=== PATIENT | female | born 1975 | race Caucasian/White ===

== ENCOUNTER 2022-07-13 13:20 | Outpatient (CLI) | payer OTHER, SELFPAY ==
--- NOTE | 2022-07-13 13:40 | CRLHL7_ITS ---
For Patients: As a result of the Century Cures Act, medical imaging exams and procedure reports are released immediately into your electronic medical record. You may view this report before your referring provider. If you have questions, please contact your health care provider. BILATERAL SCREENING MAMMOGRAM WITH COMPUTER-AIDED DETECTION AND TOMOSYNTHESIS TECHNIQUE: CC, MLO and Implant displaced views were obtained. These mammographic images have been obtained using full-field digital technique. These mammographic images were interpreted with the benefit of computer-aided detection. Breast Tomosynthesis was used in this interpretation. COMPARISON FILM: 07/01/21, 04/23/20, 05/26/18. FINDINGS: The breasts are extremely dense, which lowers the sensitivity of mammography IMPRESSION: There is no radiographic evidence for malignancy. ASSESSMENT: BI-RADS Category 2: Benign RECOMMENDATION: Routine screening mammogram in 1 year. A lay language report of this examination will be provided to the patient. Felice Valentine M.D. Diagnostic Radiologist [email or web address] FRITZ/Dictated by: Felice Valentine MD @ 07/14/2022 9:10:00 AM (Electronically Signed)
== END 2022-07-13 13:21 | disposition home or self-care (01) ==
PROVIDERS: PCP Family Medicine; Visit Provider Family Medicine
DX: Z12.31 Encounter for screening mammogram for malignant neoplasm of breast (principal); R92.2 Inconclusive mammogram
CPT/HCPCS: 77063; 77067

== ENCOUNTER 2023-08-25 08:46 | Outpatient (CLI) | payer BC, SELFPAY | END 2023-08-25 08:47 | disposition home or self-care (01) | PROVIDERS: PCP Emergency Medicine; Visit Provider Emergency Medicine | DX: Z00.00 Encounter for general adult medical examination without abnormal findings (principal); Z13.6 Encounter for screening for cardiovascular disorders; Z13.1 Encounter for screening for diabetes mellitus | CPT/HCPCS: 80061; 82947 ==

== ENCOUNTER 2024-05-11 12:55 | Outpatient (CLI) | payer BC, SELFPAY ==
--- NOTE | 2024-05-11 14:43 | W.ANESCHARGE ---
Anesthesia Charges Start Date/Time Anesthesia Start Date: 05/11/24 Anesthesia Start Time: 13:54 Stop Date/Time Anesthesia Stop Date: 05/11/24 Anesthesia Stop Time: 14:41
--- NOTE | 2024-05-11 14:56 | W.ANESCHARGE ---
Anesthesia Charges Start Date/Time Anesthesia Start Date: 05/11/24 Anesthesia Start Time: 13:54 Stop Date/Time Anesthesia Stop Date: 05/11/24 Anesthesia Stop Time: 14:41
== END 2024-05-11 12:56 | disposition home or self-care (01) ==
LOC: OP CLINIC 12:56
PROVIDERS: PCP Emergency Medicine; Visit Provider Surgery
DX: Z12.11 Encounter for screening for malignant neoplasm of colon (principal); D12.2 Benign neoplasm of ascending colon; D12.5 Benign neoplasm of sigmoid colon; K64.4 Residual hemorrhoidal skin tags
CPT/HCPCS: 00811; 45385; 88302; 88305; J2704